=== PATIENT | male | born 1980 | race Caucasian/White ===

== ENCOUNTER 2016-10-22 13:26 | Emergency (ER) | payer BC ==
[~2016-10-22] VITALS: Ht 190.5 cm; Wt 99.8 kg
--- NOTE | 2016-10-22 13:42 | NUR ---
DR PEDRAZA AT THE BEDSIDE FOR EVAL AND EXAM.
--- NOTE | 2016-10-22 14:01 | NUR ---
PT WALKED TO THE BATHROOM W/ STEADY GAIT. URINE COLLECTED AND SENT TO LAB.
[2016-10-22] MEDS ORDERED: LORAZEPAM 0.5 MG TABLET PO ONE (14:15)
[2016-10-22 14:17] LABS: BASOPHILS # (AUTO) 0.1 K/uL (0.0-8.0); BASOPHILS % (AUTO) 0.6 % (0.0-2.0); EOSINOPHILS # (AUTO) 0.2 K/uL (0.0-0.7); EOSINOPHILS % (AUTO) 1.6 % (0.0-7.0); HEMATOCRIT 45.2 % (40-50); LYMPHOCYTES % (AUTO) 41.8 % (20.5-51.5); MEAN CORPUSCULAR HEMOGLOBIN 29.6 UUG (27.0-31.0); MEAN CORPUSCULAR HGB CONC 33 g/dL (32.0-37.0); MEAN CORPUSCULAR VOLUME 88.9 FL (82.0-92.0); MONOCYTES # (AUTO) 0.7 K/UL (0.1-1.30); MONOCYTES % (AUTO) 6.3 % (0.0-11.0); NEUTROPHILS # (AUTO) 5.9 K/UL (1.8-8.9); NEUTROPHILS % (AUTO) 49.7 % (38.5-71.5); PLATELET COUNT (AUTO) 303 K/UL (150-450); RED BLOOD CELL COUNT(AUTO) 5.08 MIL/UL (4.7-6.1); WHITE BLOOD COUNT (AUTO) 11.9 K/UL (4.0-11.2)
[2016-10-22] MEDS ORDERED: LORAZEPAM 1 MG TABLET ONE (14:23)
[2016-10-22 14:29] LABS: CREATININE 0.9 mg/dL (0.6-1.3)
[2016-10-22 14:40] LABS: *BILIRUBIN,URIN NEGATIVE (NEGATIVE); *BLOOD, URINE Trace-intact (NEGATIVE); *CLARITY,URINE CLEAR (CLEAR); *COLOR,URINE YELLOW (YELLOW); *KETONES,URINE NEGATIVE (NEGATIVE); *PROTEIN,URINE NEGATIVE (NEGATIVE); *UROBILINOGEN,URINE 0.2 E.U./dl (NORMAL); LEUKOCYTE ESTERASE ,URINE NEGATIVE (NEGATIVE); NITRITE, URINE NEGATIVE (NEGATIVE); UGLUCOSE NEGATIVE (NEGATIVE)
[2016-10-22 14:42] LABS: ACETAMINOPHEN 6.7 ug/mL (10-30); BILIRUBIN,DIRECT 0.1 mg/dL (0.0-0.2); BILIRUBIN,TOTAL 0.3 mg/dL (0.2-1.0); TOTAL PROTEIN, SERUM 8.2 g/dL (6.4-8.2)
[2016-10-22 14:44] LABS: *AMPHETAMINE, URINE NEGATIVE (NEGATIVE); *BARBITURATE, URINE NEGATIVE (NEGATIVE); *CANNABINOID, URINE NEGATIVE (NEGATIVE); *COCCAINE, URINE POSITIVE (NEGATIVE); *OPIATE, URINE POSITIVE (NEGATIVE); *PHENCYCLIDINE SCREEN,URINE NEGATIVE (NEGATIVE)
--- NOTE | 2016-10-22 14:50 | NUR ---
PER MD ORDER, CALLED ESTEFANIA RUSHING FROM [facility], ETA 45 MIN.
[2016-10-22 14:59] LABS: BACTERIA,URINE NONE SEEN /HPF (NONE SEEN); SQUAMOUS EPITHELIAL CELL,UR NONE SEEN /HPF (NONE SEEN); WBC,URINE 0-3 /HPF (0-3)
--- NOTE | 2016-10-22 15:40 | NUR ---
ATIVAN EFFECTIVE, PT IS SLEEPING W/ BOTH EYES CLOSED, NAD NOTED.
--- NOTE | 2016-10-22 16:20 | NUR ---
ESTEFANIA RUSHING FROM [facility] FOR PSYCH EVAL AT THE BEDSIDE.
--- NOTE | 2016-10-22 17:05 | NUR ---
PER [facility] SUPERVISOR PATCHING PT IS NOT HOLDABLE. [facility] INTAKE FOR DETOX TRY TALK TO PT BUT PT IS LETHERGIC AND UNABLE TO ANSWER QUESTIONS COHERENTLY. [facility] INTAKE WILL TRY TO EVALUATE PT FOR ADMIT AFTER PT IS MORE AWAKE A/O.
--- NOTE | 2016-10-22 17:40 | NUR ---
Patient is resting comfortably in bed with eyes closed, NAD noted.
--- NOTE | 2016-10-22 18:20 | NUR ---
Patient is resting comfortably in bed with eyes closed
--- NOTE | 2016-10-22 19:55 | NUR ---
Patient is resting comfortably in bed with eyes closed
--- NOTE | 2016-10-22 21:00 | NUR ---
Patient is resting comfortably in bed with eyes closed
--- NOTE | 2016-10-22 21:22 | NUR ---
Spoke with [facility] staff. Patient wishes to be admitted for their services, per nursing report, and informed their staff. [facility] will check patient's information and see if he would be an eligible patient.
--- NOTE | 2016-10-22 22:32 | NUR ---
Patient is resting comfortably in bed with eyes closed
--- NOTE | 2016-10-22 23:00 | NUR ---
[facility] Staff informed patient that they could not accept him as a patient at this time, referral given for morning.
--- NOTE | 2016-10-22 23:14 | NUR ---
Patient discharged to home in stable conditon. Written and verbal after care instructions given. Patient verbalizes understanding of instructions.
== END 2016-10-22 23:15 | disposition home or self-care (01) ==
LOC: ER 13:28
DX: Z00.8 Encounter for other general examination (principal); F10.20 Alcohol dependence, uncomplicated; F19.10 Other psychoactive substance abuse, uncomplicated
CPT/HCPCS: 36415; 71010; 80307; 85025; 93005; A4663; G0480; G0480-TC

== ENCOUNTER 2016-10-23 10:53 | Emergency (ER) | payer BC ==
[~2016-10-23] VITALS: Ht 188 cm; Wt 97.5 kg
[2016-10-23 11:36] LABS: BASOPHILS # (AUTO) 0.1 K/uL (0.0-8.0); BASOPHILS % (AUTO) 0.8 % (0.0-2.0); EOSINOPHILS # (AUTO) 0.4 K/uL (0.0-0.7); EOSINOPHILS % (AUTO) 4.9 % (0.0-7.0); HEMATOCRIT 47.1 % (40-50); HEMOGLOBIN 15.9 G/DL (14.0-18.0); LYMPHOCYTES # (AUTO) 3.4 K/UL (0.8-4.8); LYMPHOCYTES % (AUTO) 42.1 % (20.5-51.5); MEAN CORPUSCULAR HEMOGLOBIN 29.9 UUG (27.0-31.0); MEAN CORPUSCULAR HGB CONC 34 g/dL (32.0-37.0); MEAN CORPUSCULAR VOLUME 88.4 FL (82.0-92.0); MONOCYTES # (AUTO) 0.5 K/UL (0.1-1.30); MONOCYTES % (AUTO) 6.3 % (0.0-11.0); NEUTROPHILS # (AUTO) 3.7 K/UL (1.8-8.9); NEUTROPHILS % (AUTO) 45.9 % (38.5-71.5); PLATELET COUNT (AUTO) 259 K/UL (150-450); RED BLOOD CELL COUNT(AUTO) 5.34 MIL/UL (4.7-6.1); WHITE BLOOD COUNT (AUTO) 8.1 K/UL (4.0-11.2)
[2016-10-23 11:50] LABS: CARBON DIOXIDE 28 mmol/L (21-32); CHLORIDE 104 mmol/L (98-107); CREATININE 0.9 mg/dL (0.6-1.3); GLUCOSE 126 mg/dL (74-106); POTASSIUM 3.7 mmol/L (3.5-5.1); UREA NITROGEN, BLOOD 7 mg/dL (7-18)
[2016-10-23 11:51] LABS: *BILIRUBIN,URIN NEGATIVE (NEGATIVE); *BLOOD, URINE NEGATIVE (NEGATIVE); *CLARITY,URINE CLEAR (CLEAR); *COLOR,URINE YELLOW (YELLOW); *KETONES,URINE NEGATIVE (NEGATIVE); *PROTEIN,URINE NEGATIVE (NEGATIVE); *UROBILINOGEN,URINE 0.2 E.U./dl (NORMAL); LEUKOCYTE ESTERASE ,URINE NEGATIVE (NEGATIVE); NITRITE, URINE NEGATIVE (NEGATIVE); UGLUCOSE NEGATIVE (NEGATIVE)
[2016-10-23 11:55] LABS: BACTERIA,URINE NONE SEEN /HPF (NONE SEEN); RBC,URINE 0-3 /HPF (0-3); SQUAMOUS EPITHELIAL CELL,UR NONE SEEN /HPF (NONE SEEN); WBC,URINE 0-3 /HPF (0-3)
[2016-10-23 12:05] LABS: ETHANOL < 3 MG/DL (0-0)
[2016-10-23 12:06] LABS: *AMPHETAMINE, URINE NEGATIVE (NEGATIVE); *BARBITURATE, URINE NEGATIVE (NEGATIVE); *CANNABINOID, URINE POSITIVE (NEGATIVE); *COCCAINE, URINE POSITIVE (NEGATIVE); *OPIATE, URINE POSITIVE (NEGATIVE); *PHENCYCLIDINE SCREEN,URINE NEGATIVE (NEGATIVE)
[2016-10-23 12:08] LABS: ALANINE AMINOTRANSFERASE 23 U/L (16-63); ALKALINE PHOSPHATASE 52 U/L (50-136); ASPARTATE AMINOTRANSFERASE 18 U/L (15-37); BILIRUBIN,DIRECT 0.1 mg/dL (0.0-0.2); BILIRUBIN,TOTAL 0.5 mg/dL (0.2-1.0); TOTAL PROTEIN, SERUM 7.3 g/dL (6.4-8.2)
[2016-10-23 12:09] LABS: ACETAMINOPHEN < 2.0 ug/mL (10-30)
--- NOTE | 2016-10-23 13:19 | NUR ---
PT WAS EVALUATED BY DR ELDER, AND [facility] PHYSICAL THERAPY ASSISTANT ESTEFANIA RUSHING. PT IS RESTING IN THE BED COMFORTABLY. NO S/S OF ACUTE DISTRESS AT THIS TIME. CONTINUE TO MONITOR THE PT.
--- NOTE | 2016-10-23 14:10 | NUR ---
PT WAS D/C'D FROM ER BY DR ELDER. D/C INSTRUCTIONS GIVEN TO THE PT BY DR ELDER.
[2016-10-23 14:11] VITALS: BP 122/81
== END 2016-10-23 14:11 | disposition home or self-care (01) ==
LOC: ER 10:55
DX: F19.10 Other psychoactive substance abuse, uncomplicated (principal); F32.9 Major depressive disorder, single episode, unspecified
CPT/HCPCS: 36415; 80048; 80076; 80307; 81001; 84484; 85025; 93005; 99285; A4663; G0480 ×2; G0481; 70030-TC